=== PATIENT | female | born 1960 | race Caucasian/White ===

== ENCOUNTER 2021-08-27 07:45 | Day surgery (SDC) | payer SELFPAY ==
[2021-08-20 16:27] VITALS: BMI 22.8
[2021-08-27] MEDS ORDERED: PROPOFOL 20 ML ONE ×10 (08:01→12:10)
[2021-08-27] MEDS ORDERED: SUCCINYLCHOLINE CHLORIDE 200 MG/10 ML SYRINGE ONE (08:03)
[2021-08-27] MEDS ORDERED: BUPIVACAINE HCL/PF 2.5 MG/ML - 30 ML VIAL IJ ONE (08:16)
[2021-08-27] MEDS ORDERED: EPINEPHrine/PF 1 MG/1 ML (1:1,000) AMPULE ONE (08:16)
[2021-08-27] MEDS ORDERED: BUPIVACAINE HCL/PF 0.25% (2.5MG/ML) 10 ML VIAL ONE (08:16)
[2021-08-27] MEDS ORDERED: LIDOCAINE HCL 1%, 10 MG/ML (20ML VIAL) ONE (08:16)
[2021-08-27] MEDS ORDERED: BUPIVACAINE LIPOSOME/PF (EXPAREL) 266 MG/20 ML VIAL ONE (08:21)
[2021-08-27] MEDS ORDERED: KETAMINE HCL 200 MG/20 ML VIAL ONE (08:35)
[2021-08-27] MEDS ORDERED: MIDAZOLAM HCL 2 MG/2 ML SINGLE DOSE VIAL ONE (08:35)
[2021-08-27] MEDS ORDERED: HYDROmorphone HCL/PF 1 MG/ML VIAL ONE (08:51)
[2021-08-27] MEDS ORDERED: ROCURONIUM BROMIDE 50 MG/5 ML SYRINGE ONE (08:58)
[2021-08-27] MEDS ORDERED: HEPARIN NA (PORCINE) 5,000 UNITS/ML 1ML VIAL ONE (09:07)
[2021-08-27] MEDS ORDERED: BACITRACIN 15 GM TUBE TOPICAL OINTMENT ONE (10:30)
[2021-08-27] MEDS ORDERED: NEOSTIGMINE METHYLSULFATE 0.5 MG/1 ML - 10 ML MDV ONE (12:19)
[2021-08-27] MEDS ORDERED: PROMETHAZINE HCL 25 MG/1 ML VIAL IVPUSH PRN (12:55)
[2021-08-27] MEDS ORDERED: oxyCODONE HCL 5 MG TABLET PO PRN ×2 (12:56→13:18)
[2021-08-27] MEDS ORDERED: LACTATED RINGERS SOLUTION 1,000 ML IV SCH ×2 (13:00→13:30)
[2021-08-27] MEDS ORDERED: ONDANSETRON 4 MG/2 ML VIAL IVPB PRN (13:18)
[2021-08-27] MEDS ORDERED: ZOLPIDEM TARTRATE 5 MG TABLET PO PRN (13:21)
[2021-08-27] MEDS: ACETAMINOPHEN 1000 MG/100 ML BAG IVPB PRN ×2 (16:37→22:56)
[2021-08-27] MEDS ORDERED: CEFAZOLIN 1 GM/D5W 1 GM/50 ML BAG IVPB SCH (18:00)
[2021-08-27] MEDS ORDERED: CEFAZOLIN 1 GM in DEXTROSE 5%-WATER - 1 GM/50 ML IVPB IVPB SCH (18:01)
[2021-08-27] MEDS ORDERED: ceFAZolin SODIUM 1 GM VIAL ONE (18:24)
[2021-08-27] MEDS ORDERED: DEXTROSE 5%-WATER - 50 ML IVPB ONE (18:24)
[2021-08-27] MEDS: CEFAZOLIN 1 GM in DEXTROSE 5%-WATER - 1 GM/50 ML IVPB IVPB SCH (18:26)
[2021-08-27] MEDS: morphine SULFATE 4 MG/ML VIAL IVPUSH PRN (20:46)
[2021-08-28] MEDS ORDERED: ceFAZolin SODIUM 1 GM VIAL ONE ×2 (01:27→09:07)
[2021-08-28] MEDS ORDERED: DEXTROSE 5%-WATER - 50 ML IVPB ONE ×2 (01:27→09:07)
[2021-08-28] MEDS: CEFAZOLIN 1 GM in DEXTROSE 5%-WATER - 1 GM/50 ML IVPB IVPB SCH ×2 (01:30→09:20)
[2021-08-28] MEDS: morphine SULFATE 4 MG/ML VIAL IVPUSH PRN (04:21)
[2021-08-28 06:22] VITALS: BP 134/79; PULSE 85; TEMP 99.3
[2021-08-28] MEDS ORDERED: HEPARIN NA (PORCINE) 5,000 UNITS/ML 1ML VIAL SQ SCH (08:00)
[2021-08-28] MEDS ORDERED: LACTOBACILLUS ACIDOPHILUS 1 TABLET PO SCH (10:00)
== END 2021-08-28 11:35 | disposition home or self-care (01) ==
LOC: FASUSAT 07:45 → FM/S 14:00 → FASUSAT 08-28 11:35
PROVIDERS: ATTEND Plastic Surgery
PROC: 0J080ZZ Alteration of Abdomen Subcutaneous Tissue and Fascia, Open Approach (ICD-10-PCS; principal; 2021-08-27 09:17)
PROC: 0J083ZZ Alteration of Abdomen Subcutaneous Tissue and Fascia, Percutaneous Approach (ICD-10-PCS; 2021-08-27 09:17)
DX: E88.1 Lipodystrophy, not elsewhere classified (principal)
CPT/HCPCS: 94760; J0131; J1644